=== PATIENT | male | born 1960 | race Caucasian/White ===

== ENCOUNTER 2024-02-19 04:24 | Day surgery (SDC) | payer MEDICARE ==
[2024-02-16 12:01] VITALS: BMI 29.2
[2024-02-19] MEDS ORDERED: oxyCODONE HCL 5 MG TABLET PO PRN ×2 (13:32)
[2024-02-19] MEDS ORDERED: ONDANSETRON 4 MG/2 ML VIAL IVPUSH PRN (13:32)
[2024-02-19] MEDS ORDERED: ceFAZolin SODIUM 1 GM VIAL ONE ×2 (13:41→18:00)
[2024-02-19] MEDS ORDERED: MIDAZOLAM HCL 2 MG/2 ML SINGLE DOSE VIAL ONE (13:41)
[2024-02-19] MEDS ORDERED: DEXAMETHASONE SOD PHOSPHATE 4 MG/1 ML VIAL ONE (13:41)
[2024-02-19] MEDS ORDERED: PROPOFOL 20 ML ONE (13:41)
[2024-02-19] MEDS: ceFAZolin SODIUM 1 GM VIAL IVPB ONE (13:52)
[2024-02-19] MEDS ORDERED: KETOROLAC TROMETHAMINE 10 MG TABLET PO PRN (16:47)
[2024-02-19] MEDS: LACTATED RINGERS SOLUTION 1,000 ML IV SCH (17:00)
[2024-02-19] MEDS: CEFAZOLIN 1 GM in DEXTROSE 5%-WATER - 50 ML IVPB SCH (18:04)
[2024-02-19 19:07] VITALS: RESP 18
[2024-02-20 08:48] VITALS: BP 118/62; PULSE 89; TEMP 99
[2024-02-20] MEDS: FINASTERIDE 5 MG TABLET (FP) PO SCH (09:10)
[2024-02-20 10:00] LABS: BASO % 0.5 % (0-2.0); EOS % 0.6 % (0-4.5); HEMATOCRIT 39.6 % (35.4-49); HEMOGLOBIN 13.3 GM/dL (11.7-16.9); LYMPH % 12.8 % (8-40); MCH 28.6 pg (25.7-33.7); MCHC 33.6 g/dl (32.0-35.9); MEAN CELL VOLUME 85.1 fl (80-96); MEAN PLT VOLUME 9.2 fl (7.5-11.1); MONO % 3.7 % (3.8-10.2); NEUT % 82.4 % (42.8-82.8); PLATELET COUNT 185 10^3/uL (134-434); RBC 4.65 M/mm3 (4.00-5.60); RDW 14.7 % (11.9-15.9); WHITE BLOOD COUNT 11.6 K/mm3 (4.0-10.0)
[2024-02-20 10:24] LABS: POTASSIUM 3.6 mmol/L (3.5-5.1)
[2024-02-20 10:26] LABS: BLOOD UREA NITROGEN 18.3 mg/dL (7-18); CALCIUM 8.3 mg/dL (8.5-10.1)
[2024-02-20 10:30] LABS: CREATININE 1.1 mg/dL (0.55-1.3)
[2024-02-20] MEDS ORDERED: TAMSULOSIN HCL 0.4 MG CAP PO SCH (18:30)
== END 2024-02-20 14:05 | disposition home or self-care (01) ==
LOC: JASU-SURG 04:24 → SUATTDRO 04:24 → JASUSAT 04:24 → J6S 18:26 → JASUSAT 02-20 14:05
PROVIDERS: ATTEND Internal Medicine
PROC: 0VT08ZZ Resection of Prostate, Via Natural or Artificial Opening Endoscopic (ICD-10-PCS; principal; 2024-02-19 12:05)
DX: N40.0 Benign prostatic hyperplasia without lower urinary tract symptoms (principal)
CPT/HCPCS: 36415; 80048; 85025; 88305-TC; 94760